=== PATIENT | female | born 1985 | race Caucasian/White ===

== ENCOUNTER 2018-12-31 20:40 | Observation (INO) | payer OTHER ==
[~2018-12-31] VITALS: Ht 152.4 cm; Wt 83.5 kg
[~2018-12-31 20:40] MED LIST: PREN1TAB52 PO
[2018-12-31 21:56] VITALS: BP 111/67
== END 2019-01-01 00:05 | disposition home or self-care (01) ==
LOC: 4S 20:40
PROVIDERS: ADMIT Obstetrics & Gynecology; ATTEND Obstetrics & Gynecology
DX: O26.893 Other specified pregnancy related conditions, third trimester (principal); R10.30 Lower abdominal pain, unspecified; O12.03 Gestational edema, third trimester; Z3A.39 39 weeks gestation of pregnancy
CPT/HCPCS: 81002; G0378

== ENCOUNTER 2019-01-02 23:55 | Observation (INO) | payer OTHER ==
[~2019-01-02] VITALS: Ht 152.4 cm; Wt 84.1 kg
[2019-01-03 02:04] VITALS: BP 119/61
== END 2019-01-03 03:45 | disposition home or self-care (01) ==
LOC: 4S 23:55
PROVIDERS: ADMIT Obstetrics & Gynecology; ATTEND Obstetrics & Gynecology
DX: O42.92 Full-term premature rupture of membranes, unspecified as to length of time between rupture and onset of labor (principal); O62.9 Abnormality of forces of labor, unspecified; Z3A.40 40 weeks gestation of pregnancy
CPT/HCPCS: 36415; 76805; 81002; 89060; G0378 ×2

== ENCOUNTER 2019-01-03 17:10 | Inpatient (IN) | payer OTHER ==
[~2019-01-03] VITALS: Ht 152 cm; Wt 83.0 kg
[2019-01-03] MEDS ORDERED: LIDOCAINE/PF 2% 5 ML VIAL IM ONE (17:11)
[2019-01-03] MEDS ORDERED: DEXAMETHASONE SOD PHOS 4 MG/ML VIAL IVP ONE (17:11)
[2019-01-03] MEDS ORDERED: ONDANSETRON HCL 4 MG/2 ML VIAL IVP ONE (17:11)
[2019-01-03] MEDS ORDERED: METOCLOPRAMIDE HCL 5 MG/ML 2 ML VIAL IVP ONE (17:11)
[2019-01-03] MEDS ORDERED: OXYTOCIN 30 UNITS/LACT RINGERS 500 ML IV PRN (19:02)
[2019-01-03] MEDS ORDERED: RINGERS SOLUTION,LACTATED 1,000 ML IV PRN (19:02)
[2019-01-03] MEDS ORDERED: CITRIC ACID/SODIUM CITRATE 30 ML SOLUTION UDCUP PO PRN (19:15)
[2019-01-03] MEDS ORDERED: FentaNYL CITRATE-PF 100 MCG/2 ML VIAL IVP PRN (19:15)
[2019-01-03] MEDS ORDERED: METOCLOPRAMIDE HCL 5 MG/ML 2 ML VIAL IVP PRN (19:15)
[2019-01-03 19:37] LABS: BASOPHILS % (AUTO) 0.5 % (0.0-2.0); EOSINOPHILS % (AUTO) 6.5 % (1.0-6.0); HEMATOCRIT 38.5 % (36-46); HEMOGLOBIN 12.9 g/dL (12.0-16.0); LYMPHOCYTES # (AUTO) 1.7 K/uL (1.0-4.8); LYMPHOCYTES % (AUTO) 18.8 % (22.0-44.0); MEAN CORPUSCULAR HEMOGLOBIN 30.9 pg (26.0-34.0); MEAN CORPUSCULAR HGB CONC 33.5 G/dL (31.0-37.0); MEAN CORPUSCULAR VOLUME 92 fL (80-100); MONOCYTES # (AUTO) 0.8 K/uL (0.1-1.0); MONOCYTES % (AUTO) 8.2 % (2.0-9.0); NEUTROPHILS # (AUTO) 6.1 K/uL (1.8-7.7); PLATELET COUNT (AUTO)-OB 208 K/uL (150-450); RED BLOOD CELL COUNT(AUTO) 4.17 MIL/uL (4.00-5.20); RED CELL DISTRIBUTION WIDTH 14.4 % (11.5-14.5)
[2019-01-03] MEDS ORDERED: OXYGEN THERAPY IH SCH (20:00)
[2019-01-03 23:01] VITALS: BP 116/63
[2019-01-03] MEDS: RINGERS SOLUTION,LACTATED 1,000 ML IV SCH (23:16)
[2019-01-04] MEDS ORDERED: AMPICILLIN SODIUM 2 GM/NS 100 ML IV ONE (02:45)
[2019-01-04] MEDS ORDERED: ROPIVACAINE HCL/PF 0.2% 100 ML ED ONE (05:52)
[2019-01-04] MEDS ORDERED: ROPIVACAINE HCL/PF 0.2% 100 ML ED PRN (06:45)
[2019-01-04] MEDS ORDERED: ONDANSETRON HCL 4 MG/2 ML VIAL IVP PRN (06:45)
[2019-01-04] MEDS ORDERED: DiphenhydrAMINE HCL 50 MG/ML VIAL IVP PRN (06:45)
[2019-01-04] MEDS: AMPICILLIN SODIUM 1 GM/NS 50 ML IV SCH ×3 (07:50→17:32)
[2019-01-04] MEDS: RINGERS SOLUTION,LACTATED 1,000 ML IV SCH (18:36)
[2019-01-04] MEDS ORDERED: METOCLOPRAMIDE HCL 5 MG/ML 2 ML VIAL IVP ONE (18:45)
[2019-01-04] MEDS ORDERED: CITRIC ACID/SODIUM CITRATE 30 ML SOLUTION UDCUP PO ONE (18:45)
[2019-01-04] MEDS ORDERED: KETAMINE HCL 50 MG/ML 10 ML VIAL ONE (18:56)
[2019-01-04] MEDS ORDERED: GUM MASTIC/STORAX/MSAL/ALCOHOL LIQUID 0.67 ML VIAL TP ONE (19:31)
[2019-01-04] MEDS ORDERED: OXYTOCIN 20 UNITS/LACT RINGERS 1,000 ML IV SCH (19:57)
[2019-01-04] MEDS ORDERED: GLYCERIN/WITCH HAZEL LEAF 40 PADS JAR TP PRN (20:00)
[2019-01-04] MEDS ORDERED: OxyCODONE HCL/ACETAMINOPHEN 5-325 MG TABLET PO PRN (20:00)
[2019-01-05 07:17] LABS: BASOPHILS % (AUTO) 0.1 % (0.0-2.0); EOSINOPHILS % (AUTO) 0 % (1.0-6.0); HEMATOCRIT 33.3 % (36-46); HEMOGLOBIN 11.1 g/dL (12.0-16.0); LYMPHOCYTES # (AUTO) 1.5 K/uL (1.0-4.8); LYMPHOCYTES % (AUTO) 9.2 % (22.0-44.0); MEAN CORPUSCULAR HEMOGLOBIN 30.7 pg (26.0-34.0); MEAN CORPUSCULAR HGB CONC 33.2 G/dL (31.0-37.0); MEAN CORPUSCULAR VOLUME 92 fL (80-100); MONOCYTES % (AUTO) 6.3 % (2.0-9.0); NEUTROPHILS # (AUTO) 13.6 K/uL (1.8-7.7); NEUTROPHILS % (AUTO) 84.4 % (40.0-70.0); PLATELET COUNT (AUTO)-OB 190 K/uL (150-450); RED BLOOD CELL COUNT(AUTO) 3.61 MIL/uL (4.00-5.20); RED CELL DISTRIBUTION WIDTH 14.1 % (11.5-14.5)
[2019-01-05] MEDS: MAGNESIUM HYDROXIDE SUSPENSION 30 ML UDCUP PO SCH ×2 (08:26→21:01)
[2019-01-05] MEDS: DEXTROSE 5%-0.45% SODIUM CHL 1,000 ML IV SCH ×2 (08:52→16:24)
[2019-01-05] MEDS: OxyCODONE HCL/ACETAMINOPHEN 5-325 MG TABLET PO PRN (18:31)
[2019-01-05] MEDS: IBUPROFEN 600 MG TABLET PO PRN (18:31)
[2019-01-06] MEDS: OxyCODONE HCL/ACETAMINOPHEN 5-325 MG TABLET PO PRN ×3 (03:23→16:38)
[2019-01-06] MEDS: IBUPROFEN 600 MG TABLET PO PRN ×3 (03:24→16:38)
[2019-01-06] MEDS: MAGNESIUM HYDROXIDE SUSPENSION 30 ML UDCUP PO SCH (09:00)
[2019-01-06] MEDS ORDERED: IBUP-2070 PO (15:18)
[2019-01-06] MEDS ORDERED: PERCT PO (15:19)
== END 2019-01-06 19:05 | disposition home or self-care (01) | DRG 788 ==
LOC: 4S 17:10 → INTOOBSV 17:10 → OBSVTOIN 17:10 → 4S 01-04 21:02
PROVIDERS: ADMIT Obstetrics & Gynecology; ATTEND Obstetrics & Gynecology
PROC: 10D00Z1 Extraction of Products of Conception, Low, Open Approach (ICD-10-PCS; principal; 2019-01-04)
DX: O62.2 Other uterine inertia (principal); Z3A.40 40 weeks gestation of pregnancy; Z37.0 Single live birth
CPT/HCPCS: 86850; 86900; 86901; J0290; J0690; J1100; J2405; J2590; J2765; J2795; J3490; J7120